=== PATIENT | female | born 2000 | race Caucasian/White ===

== ENCOUNTER 2022-02-06 01:11 | Emergency (ER) | payer SELFPAY ==
[~2022-02-06] VITALS: Ht 172.7 cm; Wt 139.9 kg
[2022-02-06] MEDS ORDERED: IV NORMAL SALINE 1,000ML 1,000 ML IV ONE (02:00)
[2022-02-06] MEDS ORDERED: KETOROLAC 15 MG/ML VIAL. IVP ONE (02:00)
[2022-02-06] MEDS ORDERED: ONDANSETRON PF 4 MG/2 ML VIAL. IVP ONE (02:00)
--- NOTE | 2022-02-06 02:35 | PHYS DOC ---
Adult General Chief Complaint Chief Complaint: MULTIPLE COMPLAINTS HPI HPI Patient is a 21-year-old female presenting to the emergency department for evaluation of whole body pain nausea anxiety and not feeling well for the past 2 days. She admits that she drank heavily 2 days ago and has been hung over in addition she smoked marijuana tonight and that made her feel worse. Patient says that her pain is throughout all her joints and muscles and she feels achy all over. She has not had any vomiting fevers chills dysuria hematuria unilateral weakness numbness or tingling. Patient is in no acute distress with normal vital signs. Review of Systems Review of Systems Constitutional: Denies fever or chills [] Eyes: Denies change in visual acuity, redness, or eye pain [] HENT: Denies nasal congestion or sore throat [] Respiratory: Denies cough or shortness of breath [] Cardiovascular: No additional information not addressed in HPI [] GI: Denies abdominal pain. + nausea. No vomiting, bloody stools or diarrhea [] : Denies dysuria or hematuria [] Musculoskeletal: + back pain, joint pain [] Integument: Denies rash or skin lesions [] Neurologic: Denies headache, focal weakness or sensory changes [] All other systems were reviewed and found to be within normal limits, except as documented in this note. Current Medications Current Medications Current Medications Medications (Trade) Dose Ordered Sig/Agustín Start Time Stop Time Status Last Admin Dose Admin Ketorolac Tromethamine (Toradol 15mg Vial) 15 mg 1X ONCE 02/06/22 02:00 02/06/22 02:01 DC 02/06/22 02:20 15 MG Lorazepam (Ativan Inj) 1 mg 1X ONCE 02/06/22 02:00 02/06/22 02:01 DC 02/06/22 02:20 1 MG Ondansetron HCl (Zofran) 4 mg 1X ONCE 02/06/22 02:00 02/06/22 02:01 DC 02/06/22 02:20 4 MG Sodium Chloride 1,000 ml @ 1,000 mls/hr 1X ONCE 02/06/22 02:00 02/06/22 02:59 02/06/22 02:20 1,000 MLS/HR Allergies Allergies Allergies Coded Allergies Type Severity Reaction Last Updated Verified No Known Drug Allergies 02/06/22 No Physical Exam Physical Exam Constitutional: Well developed, well nourished, no acute distress, non-toxic appearance. [] HENT: Normocephalic, atraumatic, bilateral external ears normal, oropharynx moist, no oral exudates, nose normal. [] Eyes: PERRLA, EOMI, conjunctiva normal, no discharge. [] Neck: Normal range of motion, no tenderness, supple, no stridor. [] Cardiovascular:Heart rate regular rhythm, no murmur [] Lungs & Thorax: Bilateral breath sounds clear to auscultation [] Abdomen: Bowel sounds normal, soft, no tenderness, no masses, no pulsatile masses. [] Skin: Warm, dry, no erythema, no rash. [] Back: No tenderness, no CVA tenderness. [] Extremities: No tenderness, no cyanosis, no clubbing, ROM intact, no edema. [] Neurologic: Alert and oriented X 3, normal motor function, normal sensory function, no focal deficits noted. [] Psychologic: Affect normal, judgement normal, mood normal. [] Current Patient Data Lab Results Laboratory Tests Test 02/06/22 00:40 POC Urine HCG, Qualitative hcg negative (Negative) EKG EKG [] Radiology/Procedures Radiology/Procedures [] Heart Score C/O Chest Pain: No Risk Factors: Risk Factors: DM, Current or recent (<one month) smoker, HTN, HLP, family history of CAD, obesity. Risk Scores: Risk Factors: DM, Current or recent (<one month) smoker, HTN, HLP, family history of CAD, obesity. Course & Med Decision Making Course & Med Decision Making I will check labs treat with Toradol IV fluids and Ativan and reassess. All labs reviewed with patient including incidental findings. Patient says she feels much better after IV fluids and her heart rate improved to 80. All other vital signs remain normal as well. She was able to tolerate fluids by mouth with no difficulty. Given patient appears well with normal vital signs benign physical exam work-up and is asking to go home I will discharge her in stable co ndition and told her to drink plenty of fluids stay away from alcohol and marijuana follow with a primary care provider within 2 days for recheck and come back to emergency department sooner with worsening pain fevers vomiting or other general concerns. Patient aware and agreeable with plan and verbalized understanding of the above instructions. Claire Disclaimer Dragon Disclaimer This electronic medical record was generated, in whole or in part, using a voice recognition dictation system. Departure Departure: Impression: Primary Impression: Total body pain Additional Impressions: Dehydration Anxiety Cannabis use with intoxication Disposition: 01 HOME / SELF CARE / HOMELESS Condition: STABLE Referrals: PCP,UNKNOWN (PCP) Patient Instructions: Marijuana Abuse-Brief Problem Qualifiers JESÚS SALEH DO February 06, 2022 02:35
[2022-02-06 02:39] LABS: BASO # 0.1 x10^3/uL (0.0-0.2); BASO % 1 % (0-3); EOS # 0.2 x10^3/uL (0.0-0.7); EOS % 2 % (0-3); HEMATOCRIT 39.3 % (36.0-47.0); HEMOGLOBIN 13.1 g/dL (12.0-15.5); LYMPH # 2.4 x10^3/uL (1.0-4.8); LYMPH % 23 % (24-48); MEAN CORPUSCULAR HEMOGLOBIN 28 pg (25-35); MEAN CORPUSCULAR HGB CONC 33 g/dL (31-37); MEAN CORPUSCULAR VOLUME 84 fL (79-100); MONO # 0.8 x10^3/uL (0.0-1.1); MONO % 8 % (0-9); NEUT # 7.1 x10^3uL (1.8-7.7); NEUT % 67 % (31-73); PLATELET COUNT 424 x10^3/uL (140-400); RED BLOOD COUNT 4.67 x10^6/uL (3.50-5.40); WHITE BLOOD COUNT 10.6 x10^3/uL (4.0-11.0)
[2022-02-06 02:45] LABS: BARBITURATES NEG (NEG); BENZODIAZEPINES NEG (NEG); CANNABINOIDS POS (NEG); COCAINE NEG (NEG); METHADONE NEG (NEG); OPIATES NEG (NEG); PHENCYCLIDINE NEG (NEG)
[2022-02-06 02:46] LABS: CLARITY,URINE CLEAR; COLOR,URINE YELLOW; GLUCOSE,URINE NEG (NEG)
[2022-02-06 02:47] LABS: AMPHETAMINE/METHAMPHETAMINE NEG (NEG); BACTERIA,URINE FEW /HPF (0-FEW); HYALINE CASTS, URINE OCC /HPF; NITRITE,URINE NEG (NEG); RBC,URINE 0 /HPF (0-2); SQUAMOUS EPITHELIAL CELL,UR MOD /LPF; UROBILINOGEN,URINE 0.2 mg/dL (0.2 mg/dL)
[2022-02-06 02:49] LABS: CREATININE 0.9 mg/dL (0.6-1.0); POTASSIUM 3.9 mmol/L (3.5-5.1)
[2022-02-06 02:56] LABS: ALBUMIN 3.5 g/dL (3.4-5.0); TOTAL BILIRUBIN 0.2 mg/dL (0.2-1.0); TOTAL PROTEIN 7.1 g/dL (6.4-8.2)
[2022-02-06 02:59] LABS: ACETAMIN < 2.0 mcg/mL (10-30); ETHANOL < 10 mg/dL (0-10); SALIC 0.8 mg/dL (2.8-20.0)
[2022-02-06 03:15] VITALS: BP 108/68
== END 2022-02-06 03:35 | disposition home or self-care (01) ==
LOC: ER 01:11
DX: M79.10 Myalgia, unspecified site (principal); E86.0 Dehydration; F41.9 Anxiety disorder, unspecified; F12.10 Cannabis abuse, uncomplicated
CPT/HCPCS: 36415; 80053; 80307; 80329; 81001; 81025; 82550; 83690; 85025; 96361; 96374; 96375; 99284; G0480; J1885; J2060; J2405; J7030

== ENCOUNTER 2022-02-12 12:40 | Emergency (ER) | payer SELFPAY ==
[~2022-02-12] VITALS: Ht 172.7 cm; Wt 139.0 kg
[2022-02-12 13:09] VITALS: BP 122/66
--- NOTE | 2022-02-12 13:14 | PHYS DOC ---
Past History Additional Past Medical Histor: PCOS Past Surgical History: No Surgical History Alcohol Use: Occasionally Adult General HPI HPI Patient is a 21year old female who presents with [sore throat. Patient reports she started having sore throat yesterday, states she has had a little bit of a headache as well, she has had an occasional cough. She states she has not had any fevers, however she has not take her temperature at home. She states she has felt little nauseous, had 1 episode of vomiting yesterday. She denies any chest pain, denies any diarrhea or abdominal pain. Denies any exposure to other ill persons. She states she has not take any medications for this, she reports she just does not feel quite right and does not know what is going on. She states her throat just feels really scratchy.] Review of Systems Review of Systems Constitutional: Denies fever or chills [] HENT: Denies nasal congestion [] endorses sore throat. Respiratory: Denies shortness of breath [] does endorse occasional cough Cardiovascular: No additional information not addressed in HPI [] GI: Denies abdominal pain,, bloody stools or diarrhea [] does endorse one episode of vomiting yesterday : Denies dysuria or hematuria [] Musculoskeletal: Denies back pain or joint pain [] Integument: Denies rash or skin lesions [] Neurologic: Denies headache, focal weakness or sensory changes [] Endocrine: Denies polyuria or polydipsia [] All other systems were reviewed and found to be within normal limits, except as documented in this note. Allergies Allergies Allergies Coded Allergies Type Severity Reaction Last Updated Verified No Known Drug Allergies 02/06/22 No Physical Exam Physical Exam Constitutional: Well developed, well nourished, no acute distress, non-toxic appearance. [] HENT: Normocephalic, atraumatic, bilateral external ears normal, oropharynx moist, no oral exudates, nose normal. [] Tonsillar swelling, 3+. Minimal erythema. No purulence noted at this time. No malodorous breath. Voice does not sound hoarse at this time Eyes: PERRLA, EOMI, conjunctiva normal, no discharge. [] Neck: Normal range of motion, no tenderness, supple, no stridor. [] Cardiovascular:Heart rate regular rhythm, no murmur [] Lungs & Thorax: Bilateral breath sounds clear to auscultation [] Abdomen: Bowel sounds normal, soft, no tenderness, no masses, no pulsatile masses. [] Skin: Warm, dry, no erythema, no rash. [] Back: No tenderness, no CVA tenderness. [] Extremities: No tenderness, no cyanosis, no clubbing, ROM intact, no edema. [] Neurologic: Alert and oriented X 3, normal motor function, normal sensory fu nction, no focal deficits noted. [] Psychologic: Affect normal, judgement normal, mood normal. [] Current Patient Data Lab Results Laboratory Tests Test 02/12/22 13:22 SARS-CoV-2 Antigen (Rapid) Negative Group A Streptococcus Rapid Negative EKG EKG [] Radiology/Procedures Radiology/Procedures [] Heart Score C/O Chest Pain: N/A Risk Factors: Risk Factors: DM, Current or recent (<one month) smoker, HTN, HLP, family history of CAD, obesity. Risk Scores: Risk Factors: DM, Current or recent (<one month) smoker, HTN, HLP, family histo ry of CAD, obesity. Course & Med Decision Making Course & Med Decision Making Pertinent Labs and Imaging studies reviewed. (See chart for details) Patient presenting with sore throat, cough for the last day. She has not taken medications for this. She has not had any fevers. She denies any exposure to other ill persons. She is well-appearing at this time, in no distress, afebrile. She does have minimal tonsillar swelling. Will evaluate for strep, evaluate for COVID. []Discussed lab results with negative Strep and Covid. Discussed use of [id number] cough medications, [id number] cold primary care. She is agreeable with this plan of care with any further questions Kamon Disclaimer Claire Disclaimer This electronic medical record was generated, in whole or in part, using a voice recognition dictation system. Departure Departure: Impression: Primary Impression: Viral pharyngitis Additional Impression: Sore throat Disposition: HOME / SELF CARE / HOMELESS Condition: GOOD Referrals: PCP,NO (PCP) Patient Instructions: Sore Throat, Viral Pharyngitis Additional Instructions: Take Over the Counter Sore throat products: Lozenges or [place] may be better. Consider cough drops as well to help with your throat discomfort Take tylenol or Ibuprofen as needed for discomfort Your Strep and your COVID test today were both negative. Follow up with your primary care provider as needed Problem Qualifiers [place] [employer] February 12, 2022 13:14
== END 2022-02-12 14:30 | disposition home or self-care (01) ==
LOC: ER 12:40
DX: J02.8 Acute pharyngitis due to other specified organisms (principal); R11.2 Nausea with vomiting, unspecified; Z20.822 Contact with and (suspected) exposure to COVID-19
CPT/HCPCS: 87070; 87426; 87880; 99283

== ENCOUNTER 2022-02-14 14:54 | Emergency (ER) | payer SELFPAY ==
[~2022-02-14] VITALS: Ht 172.7 cm; Wt 139.0 kg
[2022-02-14 15:42] VITALS: BP 125/83
--- NOTE | 2022-02-14 15:57 | RAD ---
PA and lateral chest. HISTORY: Chest wall pain, cough PA and lateral views were taken of the chest. Lungs are clear. Heart is normal in size. There is no p leural effusion. IMPRESSION: 1. No acute chest disease. Electronically signed by: Elton Mazariegos MD (02/14/2022 3:55 PM) [facility]
[2022-02-14] MEDS ORDERED: HYDROcodone/APAP 5/325MG 1 TAB TABLET PO ONE (16:00)
[2022-02-14] MEDS ORDERED: HYDR-2155 PO (16:11)
--- NOTE | 2022-02-14 16:13 | PHYS DOC ---
Past History Additional Past Medical Histor: PCOS Past Surgical History: No Surgical History Alcohol Use: Occasionally General Adult EDM: Chief Complaint: CHEST PAIN HPI: HPI: Patient is a 21-year-old female who presents to the emergency department today for midsternal chest wall tenderness with cough and shortness of breath. Chest wall tenderness is with cough and deep inspiration. It is reproducible with palpation. She rates it 6 out of 10. No treatment prior to arrival. Patient reports that she was seen in this emergency department 2 days ago and was diagnosed with viral pharyngitis after having negative strep, COVID and flu testing. Patient denies any fevers but reports occasional nausea. Review of Systems: Review of Systems: Constitutional: See HPI HENT: See HPI Respiratory: See HPI Cardiovascular: See HPI GI: see HPI Current Medications: Current Meds: Current Medications Medications (Trade) Dose Ordered Sig/Agustín Start Time Stop Time Status Last Admin Dose Admin Acetaminophen/ Hydrocodone Bitart (Lortab 5/325) 1 tab 1X ONCE 02/14/22 16:00 02/14/22 16:01 02/14/22 16:00 1 TAB Allergies: Allergies: Allergies Coded Allergies Type Severity Reaction Last Updated Verified No Known Drug Allergies 02/12/22 No Physical Exam: PE: Constitutional: Well developed, well nourished, no acute distress, non-toxic appearance. [] HENT: Normocephalic, atraumatic, bilateral external ears normal, oropharynx moist, no oral exudates, nose normal. [] Eyes: PERRL, EOMI, conjunctiva normal, no discharge. [] Neck: Normal range of motion, no tenderness, supple, no stridor. [] Cardiovascular:Heart rate regular rhythm, no murmur, midsternal chest wall tenderness with palpation [] Lungs & Thorax: Bilateral breath sounds clear to auscultation [] Abdomen: Bowel sounds normal, soft, no tenderness, no masses, obese, no pulsatile masses. [] Skin: Warm, dry, no erythema, no rash. [] Back: No tenderness normal range of motion Extremities: No tenderness, no cyanosis, no clubbing, ROM intact, no edema. [] Neurologic: Alert and oriented X 3, normal motor function, normal sensory function, no focal deficits noted. [] Psychologic: Affect normal, judgement normal, mood normal. [] Current Patient Data: Vital Signs: Vital Signs Date Time Temp Pulse Resp B/P (MAP) Pulse Ox O2 Delivery O2 Flow Rate FiO2 02/14/22 15:42 97.8 102 20 125/83 (97) 98 Room Air EKG: EKG: EKG performed by ER staff at 1502 shows sinus rhythm with a rate of 95, no STEMI read by Dr. Zavala Radiology/Procedures: Radiology/Procedures: []PROCEDURE: CHEST PA & LATERAL PA and lateral chest. HISTORY: Chest wall pain, cough PA and lateral views were taken of the chest. Lungs are clear. Heart is normal in size. There is no pleural effusion. IMPRESSION: 1. No acute chest disease. Electronically signed by: Elton Hollingsworth MD (02/14/2022 3:55 PM) [facility] DICTATED AND SIGNED BY: ELTON HOLLINGSWORTH MD DATE: 02/14/22 1549 CC: EMERGENCY,DEPARTMENT; MARIO TURNER APRN; PCP,NO ~ Heart Score: C/O Chest Pain: No Risk Factors: Risk Factors: DM, Current or recent (<one month) smoker, HTN, HLP, family history of CAD, obesity. Risk Scores: Score 0 - 3: 2.5% MACE over next 6 weeks - Discharge Home Score 4 - 6: 20.3% MACE over next 6 weeks - Admit for Clinical Observation Score 7 - 10: 72.7% MACE over next 6 weeks - Early Invasive Strategies Course & Med Decision Making: Course & Med Decision Making Pertinent Labs and Imaging studies reviewed. (See chart for details) [] Patient presents to the emergency department for chest wall tenderness with cough and deep inspiration with a nonproductive cough and shortness of breath. Patient was recently diagnosed with viral pharyngitis in this emergency department after having negative COVID, influenza and strep testing. Chest x- ray was performed that she did not show any acute findings. Patient advised to take anti-inflammatory medications and she was given dose of pain medication while in the emergency department. She will be discharged home with an alb uterol inhaler that she can use for shortness of breath. Patient's vital signs are stable.hr 92BM, o2sat is 96% RA I discussed with patient all findings and diagnostic testing as well as the need to follow-up with PCP for further evaluation and treatment or return to the ER if any new or worsening symptoms. Strict return precautions were also discussed at length. Patient voiced understanding and agreement with the plan. Patient is hemodynamically stable at the time of disposition. Dragon Disclaimer: Claire Disclaimer: This electronic medical record was generated, in whole or in part, using a voice recognition dictation system. Departure Departure: Impression: Primary Impression: Chest wall pain Disposition: HOME / SELF CARE / HOMELESS Condition: GOOD Referrals: PCP,NO (PCP) Patient Instructions: Chest Wall Pain Additional Instructions: You are seen in the emergency department today for chest wall pain. This is li pari musculoskeletal in nature due to your coughing. Please take anti- inflammatory medications at home like ibuprofen or naproxen. You are being discharged home with a pain medication that you can take as needed for severe pain. This medication is hydrocodone and Tylenol combination tablet. This medication may cause sedation so do not take any need to be alert, driving a vehicle or with alcohol. You are also being discharged home with an albuterol inhaler that you can use for shortness of breath and/or wheezing. Follow-up with your primary care provider tomorrow regarding your ER visit. Return to the emergency department if you develop chest pain, shortness of breath, lethargy, high fevers refractory to treatment, intractable nausea or vomiting. Scripts Hydrocodone Bit/Acetaminophen (HYDROCODONE-APAP 5-325 ) 1 Each Tablet 1 TAB PO PRN Q6HRS PRN for PAIN for 2 Days, #8 TAB 0 Refills Prov: MAIRO TURNER APRN 02/14/22 MARIO TURNER APRN February 14, 2022 16:13
[2022-02-14] MEDS ORDERED: ALBUTEROL SULFATE 8GM INHALER. ONE (16:27)
== END 2022-02-14 16:25 | disposition home or self-care (01) ==
LOC: ER 14:54
DX: R07.2 Precordial pain (principal); R05.9 Cough, unspecified; R06.02 Shortness of breath
CPT/HCPCS: 71046; 93005; 99283